=== PATIENT | female | born 1950 | race Caucasian/White ===

== ENCOUNTER 2024-07-17 16:26 | Emergency (ER) | payer MEDICARE, OTHER ==
[2024-07-17 17:13] LABS: #Lymphocytes 0.6 thou/uL (1.20-3.40); #Monocytes 0.5 thou/uL (0.11-0.59); #Neutrophils 6.2 thou/uL (1.40-6.50); %Basophils 0.5 % (0.0-1.0); %Eosinophils 0.4 % (0.0-10.0); %Lymphocytes 7.9 % (21.0-51.0); %Neutrophils 84.3 % (42.0-75.0); Hematocrit 47.3 % (36.0-47.0); Mean Corpuscular HGB CONC 33.9 g/dL (32.0-36.0); Mean Corpuscular Hemoglobin 33.1 pg (27.0-31.0); Mean Corpuscular Volume 97.5 fl (78.0-98.0); Mean Platelet Volume 6.4 fL (7.4-10.4); Platelet Count 263 10x3/uL (130-400); RBC Distribution Width 11.9 % (11.5-14.5); Red Blood Cell (RBC) Count 4.85 mill/uL (4.20-5.40); White Blood Cell (WBC) Count 7.4 10x3/uL (4.8-10.8)
[2024-07-17 17:37] LABS: ALT (SGPT) 19 U/L (8-55); AST (SGOT) 25 U/L (5-34); Albumin 4.1 g/dL (3.4-4.8); Alkaline Phosphatase 103 U/L (40-110); Anion Gap 18 mmol/L (10-20); BUN (Urea Nitrogen) 9 mg/dL (9.8-20.1); Bilirubin, Total 0.5 mg/dL (0.2-1.2); Calc. Creatinine Clearance 0 mL/min (70-130); Calcium 9.2 mg/dL (7.8-10.44); Carbon Dioxide 20 mmol/L (23-31); Chloride 93 mmol/L (98-107); Estimated GFR 80; Globulin 2.8 g/dL (2.4-3.5); Glucose 110 mg/dL (83-110); Potassium 3.9 mmol/L (3.5-5.1); Protein, Total 6.9 g/dL (5.8-8.1); Sodium 127 mmol/L (136-145)
[2024-07-17 17:38] LABS: Troponin I 0.029 ng/mL (< 0.028)
[2024-07-17] MEDS ORDERED: Sodium Chloride 0.9% 1,000 ML ONE ×2 (17:49→20:12)
[2024-07-17] MEDS ORDERED: Meclizine HCl 25 MG TAB ONE (18:29)
[2024-07-17 20:26] LABS: Bilirubin Negative (Negative); Blood, Urine Negative (Negative); Glucose, Urine (Dipstick) Negative (Negative); Ketone, Urine 40 mg/dL (Negative); Leukocyte Negative (Negative); Nitrite Negative (Negative); Protein, Urine (Dipstick) Negative (Neg-Trace); Specific Gravity, Urine 1.015 (1.005-1.030); Urobilinogen 0.2 mg/dL (Less than 2); pH, Urine 7.5 (5.0-9.0)
[2024-07-17 20:36] LABS: Clarity Hazy (Clear)
[2024-07-17 20:37] LABS: CAUTI Indications for Culture Fever or rigors; RBC/HPF 0-3 HPF (0-3); Squamous Epithelial 0-3 HPF (0-3); Transitional Epithelial 0-3 HPF (None Seen); WBC/HPF 0-3 HPF (0-3)
[2024-07-17 20:38] LABS: Urine Culture Reflex No No
[2024-07-17 20:55] LABS: Troponin I 0.173 ng/mL (< 0.028)
[2024-07-17] MEDS ORDERED: Enoxaparin 60 MG (0.6 mL) SYRINGE ONE (21:09)
[2024-07-17] MEDS ORDERED: Nitroglycerin 2% Ointment 1 INCH/1 GM Packet ONE (21:09)
[2024-07-17] MEDS ORDERED: Acetaminophen 500 MG TAB ONE (21:57)
[2024-07-17] MEDS ORDERED: traZODone HCl 50 MG TAB ONE (23:36)
[2024-07-17 23:59] LABS: Critical Call Chem Troponin I NUR.ANG2@2359; Troponin I 0.251 ng/mL (< 0.028)
[2024-07-18] MEDS ORDERED: Pregabalin 50 MG CAP ONE ×2 (02:08→02:10)
[2024-07-18] MEDS ORDERED: Amitriptyline HCl 10 MG TAB PO SCH (02:30)
== END 2024-07-18 02:50 | disposition short-term general hospital (02) ==
LOC: NAV ERS 16:26
DX: I10 Essential (primary) hypertension (principal); R42 Dizziness and giddiness; E87.1 Hypo-osmolality and hyponatremia; R79.89 Other specified abnormal findings of blood chemistry; E78.00 Pure hypercholesterolemia, unspecified; Z79.899 Other long term (current) drug therapy
CPT/HCPCS: 71046; 80053; 81001; 84484; 85025; 85379; 93005; 96372; J1650; J7030